=== PATIENT | female | born 1975 ===

== ENCOUNTER → 2020-11-04 08:00 | Outpatient (CLI) | payer OTHER | END | disposition home or self-care (01) | LOC: LAB 08:00 → EDBD 08:00 → ADM 14:15 → AMB-ENDOS 11-08 14:15 → EDSTATUS 12-18 14:15 | PROVIDERS: ATTEND Colon & Rectal Surgery | DX: Z03.818 Encounter for observation for suspected exposure to other biological agents ruled out (principal); K64.2 Third degree hemorrhoids; K92.1 Melena; K59.09 Other constipation ==

== ENCOUNTER 2020-12-20 09:17 | Day surgery (SDC) | payer OTHER | END 2020-12-20 16:15 | disposition home or self-care (01) | LOC: EDBD → AMB-ENDOS 09:17 | PROVIDERS: ATTEND Colon & Rectal Surgery | DX: D12.4 Benign neoplasm of descending colon (principal); K64.1 Second degree hemorrhoids; Z20.822 Contact with and (suspected) exposure to COVID-19 ==